=== PATIENT | male | born 1935 | race Caucasian/White ===

== ENCOUNTER 2018-10-10 12:08 | Emergency (ER) | payer MEDICARE, SELFPAY ==
[2018-10-10 12:09] VITALS: BP 143/65; PULSE 118; RESP 18; TEMP 36.1; O2SAT 98; BMI 34.8
--- NOTE | 2018-10-10 12:47 | NURSING ---
DR LANDON IN ROOM
--- NOTE | 2018-10-10 13:02 | PCM.CONS.U ---
Reason for Consult Date of Consultation: 10/10/18 Reason for Consultation: Urinary retention and phimosis History of Present Illness: The patient is a 83 year old 82-year-old male who was in the emergency room presented with phimosis and urinary retention came in and saw examined the patient and he was found to have severe phimosis of the foreskin was not able to urinate I had to perform a dorsal slit in the emergency room, this was done by local lidocaine prepped with Betadine and performed a small dorsal slit I was then able to get the Tracey catheter into the meatus and into the bladder I drained a significant amount of urine. Patient will go home with a catheter with antibiotics he can follow-up in my office for further care Past Medical History Surgical History: noncontributory Psychiatric History: No pertinent psych hx Lives: Alone Tobacco Use: Non-smoker Alcohol: None Drugs: None Review of Systems Constitutional: Denies: Chills, Fever, Weight Change HEENT: Denies: Head Aches, Sinus Congestion, Sinus Drainage Cardiovascular: Denies: Chest Pain, Palpitations Respiratory: Denies: Cough, Shortness of breath at rest, Sputum production Gastrointestinal: Denies: Abdominal Pain, Nausea, Vomiting Genitourinary: Denies: Dysuria Musculoskeletal: Denies: Joint Pain, Joint Tenderness Skin: Denies: Rash, Wounds Neurological: Denies: Numbness, Tingling, Focal weakness Psychiatric: Denies: Anxiety, Depression, Homicidal Ideations, Suicidal Ideations Hematologic/ Lymphatic: Denies: Easy Bruising, Easy Bleeding Physical Exam - Physical Exam Vital Signs Temp 97 F L 10/10/18 12:09 Pulse 118 H 10/10/18 12:09 Resp 18 10/10/18 12:09 BP 143/65 H 10/10/18 12:09 Pulse Ox 98 10/10/18 12:09 Intake & Output 10/08/18 10/09/18 10/10/18 23:59 23:59 23:59 Weight: 110.223 kg General: Alert, Oriented x3 HEENT: Atraumatic Oral: Moist Mucosa Neck: Supple Lungs: Normal air movement Cardiovascular: Regular rate Abdomen: Soft Assessment/Plan 83-year-old male with phimosis retention of urine dorsal slit performed Tracey catheter placed he can go home with a catheter please give him some days of antibiotics and plan to see him in the office for follow-up.
--- NOTE | 2018-10-10 13:16 | ED.DCSUM_ITS ---
- ER Visit Summary Date of Service: 10/10/18 Chief Complaint: Urinary retention History of Present Illness: The patient is a 83 M who comes in from [facility] for urinary retention. They cannot get a catheter in because of a phimosis. He was sent here for a urology consult. He also complains of some constipation. No other symptoms Physical Examination: Vital signs reviewed. HEENT exam unremarkable. Heart is tachycardic and regular without murmurs. Lungs are clear. Abdomen soft and nontender. No distention. His neurologic exam is at baseline Test Results: None performed Emergency Department Course and Treatment: The patient had a normal urinalysis at [facility]. Dr. Chatman came and did a dorsal slit and inserted the catheter. Patient will be placed on Keflex. He will follow-up in the office Treatment Plan: [] Disposition: Discharge Impression: Acute urinary retention This note was generated with [employer] dictation software. It may contain incorrect words, spelling, and punctuation that were not noted in review of the chart prior to signing ED Disposition - Plan for ED Patient: Referrals: Jeff Luong DO [Primary Care Provider] -
--- NOTE | 2018-10-10 13:16 | ED.DEP ---
ED Disposition - Plan for ED Patient: Disposition: Home or Assisted Living Instructions: ED Retention Urinary Male Prescriptions: Cephalexin [Keflex] 500 mg PO Q12 #14 cap Referrals: Jeff Luong DO [Primary Care Provider] -
[2018-10-10 13:39] VITALS: RESP 18; BMI 34.8
[2018-10-10 13:45] VITALS: RESP 18
[2018-10-10] MEDS: Lidocaine Jelly 2% 20 ML Syringe (URO-JET) 20 APPLIC TOPICAL (13:47)
--- NOTE | 2018-10-10 13:47 | ED.RN ---
DR. LANDON INSERTED LOPEZ CATHETER
== END 2018-10-10 13:48 | disposition home or self-care (01) ==
PROVIDERS: Emergency Provider Emergency Medicine; Family Provider Preventive Medicine Occupational Medicine; PCP Preventive Medicine Occupational Medicine
DX: R33.9 Retention of urine, unspecified (principal); N47.1 Phimosis; K59.00 Constipation, unspecified; R00.0 Tachycardia, unspecified; E11.9 Type 2 diabetes mellitus without complications; I10 Essential (primary) hypertension
CPT/HCPCS: 51702; 99283